=== PATIENT | male | born 1980 | race Caucasian/White ===

== ENCOUNTER 2018-07-09 12:17 | Emergency (ER) | payer SELFPAY ==
[~2018-07-09] VITALS: Ht 167.6 cm; Wt 81.0 kg
[2018-07-09 12:19] VITALS: BP 150/80
[2018-07-09] MEDS ORDERED: DIPH,PERTUSS(ACELL),TET VAC/PF 0.5 ML IM-VACC ONE ×2 (12:49→13:00)
[2018-07-09] MEDS ORDERED: LIDOCAINE-MPF 2%, 2ML ONE (12:49)
[2018-07-09] MEDS ORDERED: LIDOCAINE 2%, 20ML SQ ONE (13:00)
[2018-07-09] MEDS ORDERED: PLEASE ENTER ALLERGIES MC SCH (13:00)
== END 2018-07-09 13:57 | disposition home or self-care (01) ==
LOC: ED 13:50
DX: S61.211A Laceration without foreign body of left index finger without damage to nail, initial encounter (principal); X58.XXXA Exposure to other specified factors, initial encounter; Y93.89 Activity, other specified; Y92.009 Unspecified place in unspecified non-institutional (private) residence as the place of occurrence of the external cause; Y99.8 Other external cause status
CPT/HCPCS: 90471; 90715; 99283; J3490

== ENCOUNTER 2019-02-19 00:43 | Emergency (ER) | payer SELFPAY ==
[~2019-02-19] VITALS: Ht 172.7 cm; Wt 93.0 kg
[2019-02-19] MEDS ORDERED: LORazepam 0.5MG TABLET ONE (00:54)
[2019-02-19] MEDS ORDERED: LORazepam 0.5MG TABLET PO ONE (01:00)
--- NOTE | 2019-02-19 01:02 | NUR ---
Per pt, 's phone number is [phone] Crystal Pt initally requesting RN to call , pt then changed his mind. Pt agrees to hold off on phone calls until dispo/plan is in place
--- NOTE | 2019-02-19 01:12 | NUR ---
RECEIVED REPORT FROM YADIEL FISHMAN TO ASSUME PT. CARE.
--- NOTE | 2019-02-19 01:27 | NUR ---
PT. CONTINUALLY STATING THAT "MY HEART STOPPED". PT. ASSURED THAT HE IS ON ALL THE MONITORS AND THAT IF ANY CHANGES IN THE CARDIAC RHYTHM OCCUR THAT WE WILL SEE IT. PT. PT. STATES "I KNOW MY HEART IS STOPPING". REASSURANCE AGAIN OFFERED. VSS. CALL LIGHT IN REACH. ALL SAFETY MEASURES OBSERVED.
--- NOTE | 2019-02-19 02:02 | NUR ---
PT. CONTINUES TO REPORT THAT "MY HEART IS STOPPING, I AM NOT WELL." WILL DISCUSS WITH JEANNA.
--- NOTE | 2019-02-19 02:07 | NUR ---
DISCUSSED PT. CONTINUED C/O "HEART STOPPING" WITH DR. PADILLA. WILL CONTINUE TO MONITOR PT. FOR NOW. NO NEW ORDERS AT THIS TIME. PT. AGAIN OFFERED REASSURANCE THAT THE MONITORS WILL SHOW ANY CHANGE IN CONDITION AND THAT THIS RN WILL BE IN TO CHECK ON HIM HOURLY OR MORE FREQUENTLY IF NEEDED.
--- NOTE | 2019-02-19 02:41 | NUR ---
PT. RESTING ON GUR[place]LETT WITH NADN. PRUITT AND UPDATED. PT. PROVIDED WITH CRACKERS [facility]
[2019-02-19 03:26] VITALS: BP 118/77
== END 2019-02-19 03:26 | disposition home or self-care (01) ==
LOC: ED 02:07
DX: F22 Delusional disorders (principal); F12.129 Cannabis abuse with intoxication, unspecified
CPT/HCPCS: 93005; 99284